=== PATIENT | female | born 1945 | race Hispanic/Latino ===

== ENCOUNTER 2019-01-08 06:46 | Day surgery (SDC) | payer OTHER ==
[2019-01-04 11:57] LABS: BASOPHILS % (AUTO) 0.7 % (0.0-5.0); HEMATOCRIT 41.7 % (36-48); LYMPHOCYTES % (AUTO) 34.6 % (21.0-51.0); MEAN CORPUSCULAR HEMOGLOBIN 30.7 pg (27.0-33.0); MEAN CORPUSCULAR HGB CONC 33.5 g/dL (32.0-36.0); MEAN CORPUSCULAR VOLUME 91.4 fL (79-99); MONOCYTES % (AUTO) 7.6 % (3.0-13.0); NEUTROPHILS % (AUTO) 55.1 % (40.0-77.0); PLATELET COUNT (AUTO) 230 K/uL (130-400); RED BLOOD CELL COUNT(AUTO) 4.56 MIL/uL (4.00-5.50); RED CELL DISTRIBUTION WIDTH 13.6 % (11.0-15.5); WHITE BLOOD COUNT (AUTO) 7.5 K/uL (4.8-10.8)
[2019-01-04 12:11] LABS: ALBUMIN 3.4 g/dL (3.5-5.0); BILIRUBIN,DIRECT 0.1 mg/dL (0.0-0.3); BILIRUBIN,TOTAL 0.2 mg/dL (0.2-1.0); CREATININE 0.6 mg/dL (0.5-1.5); POTASSIUM 4.4 mmol/L (3.5-5.1); TOTAL PROTEIN, SERUM 7.3 g/dL (6.0-8.3)
[2019-01-04 12:18] VITALS: BP 178/63
[~2019-01-08] VITALS: Ht 147.3 cm; Wt 84.5 kg
[2019-01-08] VITALS (14 sets, daily range): BP systolic 114–154; BP diastolic 55–73
[~2019-01-08 06:46] MED LIST: ASPI-555 PO; EZET10TA48 PO; LACTATED RINGERS 1000ML 1,000 ML IV SCH; LOSA25TA41 PO; PRAV20TA4 PO
[2019-01-08] MEDS ORDERED: HEPARIN SODIUM 1000UNIT/ML 10ML VIAL ONE (07:38)
[2019-01-08] MEDS ORDERED: DEXAMETHASONE SOD PHOSPHATE 10MG/ML 1ML VIAL ONE (08:39)
[2019-01-08] MEDS ORDERED: LIDOCAINE PF 2% 5ML ABBOJECT ONE (08:39)
[2019-01-08] MEDS ORDERED: PROPOFOL 10 MG/ML 20ML VIAL IV ONE (08:39)
[2019-01-08] MEDS ORDERED: ONDANSETRON HCL 4 MG/2 ML VIAL ONE (08:39)
[2019-01-08] MEDS ORDERED: MIDAZOLAM HCL 1 MG/ML 2ML VIAL ONE (08:39)
[2019-01-08] MEDS ORDERED: ROCURONIUM 10MG/1ML SYR 10 MG/ML ML ONE (08:40)
[2019-01-08] MEDS ORDERED: FENTANYL CITRATE PF 50 MCG/1 ML 2ML VIAL ONE (08:40)
[2019-01-08] MEDS ORDERED: NEOSTIGMINE 5MG/5ML SYR IV ONE (10:08)
[2019-01-08] MEDS ORDERED: GLYCOPYRROLATE 1 MG/5 ML SYRINGE ONE (10:08)
[2019-01-08] MEDS ORDERED: MEPERIDINE-PF 25 MG/ML SYG ONE (10:41)
[2019-01-08] MEDS ORDERED: MORPHINE SULFATE 2 MG/ML 1ML SYG ONE (10:47)
[2019-01-08] MEDS ORDERED: ACETAMINOPHEN-CODEINE 300/30MG TAB ONE (11:42)
--- NOTE | 2019-01-08 12:08 | NUR ---
Pt discharged home, ambulating well, tolerating fluids well, denies any nausea or dizziness. Prescription given to spouse. Dressings x4 to abdomen (1 above umbilicus, 3 across upper right quadrant starting at midline) remain dry, clean and intact with bandaids covering them. Pt experience some relief with pain medication Tylenol #3 and notified that next dose could be taken again in 4 hours. Pt and spouse report no further questions at this time.
== END 2019-01-08 12:08 | disposition home or self-care (01) ==
LOC: DAH 06:46
PROVIDERS: ATTEND Surgery
DX: K80.10 Calculus of gallbladder with chronic cholecystitis without obstruction (principal); E66.9 Obesity, unspecified; I10 Essential (primary) hypertension; E55.9 Vitamin D deficiency, unspecified; E78.5 Hyperlipidemia, unspecified; Z86.010 Personal history of colon polyps; Z98.890 Other specified postprocedural states; Z88.8 Allergy status to other drugs, medicaments and biological substances
CPT/HCPCS: 36415; 47562; 80048; 80076; 85025; 88304; 93005; A4450; A4600; A4649; C1769 ×4; J1100; J1644; J2001; J2175; J2250; J2405; J2704; J2710; J3010; J3490; J7030; J7120 ×2